=== PATIENT | male | born 1930 | race Caucasian/White ===

== ENCOUNTER → 2019-08-26 | Outpatient (CLI) | payer MEDICARE, OTHER ==
[~2019-08-26] MED LIST: DUTA.5 PO; LISI20 PO; LOVA40 PO; METF500 PO; PIOG30 PO; TAMS.4ER PO
== END | disposition home or self-care (01) ==
LOC: LAB SHORT 09:24 → PLD 09:24
DX: B07.9 Viral wart, unspecified (principal)
CPT/HCPCS: 88305

== ENCOUNTER → 2021-02-08 | Outpatient (CLI) | payer OTHER | END | disposition home or self-care (01) | LOC: LAB SHORT 14:56 → LAB 14:56 | DX: C44.229 Squamous cell carcinoma of skin of left ear and external auricular canal (principal) | CPT/HCPCS: 88305 ==